=== PATIENT | male | born 1990 | race Caucasian/White ===

== ENCOUNTER 2016-09-11 22:26 | Observation (INO) | payer BC ==
[~2016-09-11] VITALS: Ht 170.2 cm; Wt 80.6 kg
[2016-09-11 23:22] VITALS: BP 140/93; PULSE 99; TEMP 98.3
[2016-09-11 23:50] LABS: BASO # 0.1 (0.0-0.2); BASO % 0.4 % (0.0-2.0); EOS # 0.3 (0.0-0.7); EOS % 2.2 % (0-4.0); GRAN # 7.9 (1.4-6.5); GRAN % 62.1 % (42.2-75.2); HEMATOCRIT 49.7 % (42.0-52.0); HEMOGLOBIN 17.3 g/dl (13.5-18.0); LYMPH # 3.2 (1.2-3.4); LYMPH % 25.6 % (20.0-51.0); MEAN CELL VOLUME 91 fl (80.0-100.0); MEAN CORPUSCULAR HEMOGLOBIN 32 pg (27.0-31.0); MEAN CORPUSCULAR HGB CONC 35 g/dl (33.0-37.0); MONO # 1.2 (0.1-0.6); MONO % 9.2 % (1.7-9.3); PLATELET COUNT 197 K/mm3 (130-400); RED BLOOD COUNT 5.45 M/mm3 (4.20-5.60); REDCELL DISTRIBUTION WIDTH-CV 12.1 % (11.5-14.5); WHITE BLOOD COUNT 12.7 K/mm3 (4.8-10.8)
[2016-09-12] VITALS (9 sets, daily range): BP systolic 107–140; BP diastolic 67–93; PULSE 82–107; TEMP 97.4–98.3
[2016-09-12 01:43] LABS: CALCIUM 9.9 mg/dL (8.4-10.2); CREATININE, serum 0.8 mg/dL (0.66-1.25)
[2016-09-12 06:37] LABS: BASO # 0.1 (0.0-0.2); BASO % 0.6 % (0.0-2.0); EOS # 0.3 (0.0-0.7); EOS % 2.1 % (0-4.0); GRAN # 10.6 (1.4-6.5); GRAN % 73.1 % (42.2-75.2); HEMATOCRIT 44.1 % (42.0-52.0); LYMPH # 2.2 (1.2-3.4); LYMPH % 15.3 % (20.0-51.0); MEAN CELL VOLUME 92 fl (80.0-100.0); MEAN CORPUSCULAR HEMOGLOBIN 32 pg (27.0-31.0); MEAN CORPUSCULAR HGB CONC 35 g/dl (33.0-37.0); MEAN PLATELET VOLUME 10.7 fl (7.4-10.4); MONO # 1.2 (0.1-0.6); MONO % 8.3 % (1.7-9.3); PLATELET COUNT 175 K/mm3 (130-400); RED BLOOD COUNT 4.78 M/mm3 (4.20-5.60); WHITE BLOOD COUNT 14.4 K/mm3 (4.8-10.8)
[2016-09-12 06:38] LABS: HEMOGLOBIN 15.2 g/dl (13.5-18.0)
== END 2016-09-12 09:22 | disposition home health service (06) ==
LOC: SURG 22:26
PROVIDERS: Surgery
DX: T18.5XXA Foreign body in anus and rectum, initial encounter (principal)
CPT/HCPCS: G0378; G0379; J2310; J2405; J2704; J3010; J7042; J7120

== ENCOUNTER 2017-11-02 17:43 | Inpatient (IN) | payer OTHER ==
[~2017-11-02] VITALS: Ht 165.1 cm; Wt 80.7 kg
[2017-11-02 18:16] VITALS: BP 167/101; PULSE 84; TEMP 98.8
[2017-11-02 20:12] LABS: INR 1.1 (0.8-3.0); PROTHROMBIN TIME 12.5 SECONDS (9.7-12.8)
[2017-11-02 20:15] LABS: PARTIAL THROMBOPLASTIN TIME 26.1 SECONDS (26.0-37.0)
[2017-11-02 20:16] VITALS: BP 169/102; PULSE 81; TEMP 97.5
[2017-11-02 23:41] VITALS: BP 169/103; PULSE 93; TEMP 99
[2017-11-03] VITALS (9 sets, daily range): BP systolic 150–159; BP diastolic 81–105; PULSE 79–93; TEMP 98.5–98.9
[2017-11-03 00:20] LABS: COLLECTION METHOD CLEAN CATCH
[2017-11-03 00:33] LABS: AMORPHOUS CRYSTAL Present /uL; PH 7 (5-8); SQUAMOUS EPITHELIAL None Seen /hpf; URINE APPEARANCE Cloudy; URINE BACTERIA None Seen /hpf; URINE BILIRUBIN Negative (NEGATIVE); URINE BLOOD Negative (NEGATIVE); URINE COLOR Yellow; URINE GLUCOSE Negative (NEGATIVE); URINE KETONE 1+ (NEGATIVE); URINE LEUKOCYTE ESTERASE Negative (NEGATIVE); URINE NITRATE Negative (NEGATIVE); URINE PROTEIN(semi-quant) 1+ (NEGATIVE); URINE RBC 0-2 /hpf; URINE UROBILINOGEN Negative (NEGATIVE); URINE WBC 0-2 /hpf
[2017-11-03 00:36] LABS: TRICYCLIC ANTIDEPRESS URINE NEGATIVE
[2017-11-03 07:53] LABS: BASO % 0.2 % (0.0-2.0); EOS # 0.1 (0.0-0.7); EOS % 0.3 % (0-4.0); GRAN # 13.4 (1.4-6.5); GRAN % 86.3 % (42.2-75.2); HEMOGLOBIN 15.6 g/dl (13.5-18.0); LYMPH % 6.4 % (20.0-51.0); MEAN CELL VOLUME 93 fl (80.0-100.0); MEAN CORPUSCULAR HEMOGLOBIN 33 pg (27.0-31.0); MEAN CORPUSCULAR HGB CONC 36 g/dl (33.0-37.0); MEAN PLATELET VOLUME 10.4 fl (7.4-10.4); MONO % 6.2 % (1.7-9.3); PLATELET COUNT 143 K/mm3 (130-400); RED BLOOD COUNT 4.72 M/mm3 (4.20-5.60); REDCELL DISTRIBUTION WIDTH-CV 11.5 % (11.5-14.5)
[2017-11-03 08:02] LABS: CHOLESTEROL RISK RATIO 4.8; CREATININE, serum 0.63 mg/dL (0.66-1.25); MAGNESIUM 2.2 mg/dL (1.6-2.3); POTASSIUM 3.2 mmol/L (3.4-5.0)
[2017-11-04] VITALS (12 sets, daily range): BP systolic 135–165; BP diastolic 82–104; PULSE 71–89; TEMP 97.8–99.4
[2017-11-04 06:22] LABS: BASO # 0.1 (0.0-0.2); BASO % 0.5 % (0.0-2.0); EOS # 0.3 (0.0-0.7); EOS % 2.3 % (0-4.0); GRAN # 10.2 (1.4-6.5); GRAN % 78.2 % (42.2-75.2); HEMATOCRIT 40.7 % (42.0-52.0); HEMOGLOBIN 14.4 g/dl (13.5-18.0); LYMPH # 1.4 (1.2-3.4); LYMPH % 10.5 % (20.0-51.0); MEAN CELL VOLUME 94 fl (80.0-100.0); MEAN CORPUSCULAR HEMOGLOBIN 33 pg (27.0-31.0); MEAN CORPUSCULAR HGB CONC 35 g/dl (33.0-37.0); MEAN PLATELET VOLUME 10.6 fl (7.4-10.4); MONO % 7.9 % (1.7-9.3); PLATELET COUNT 122 K/mm3 (130-400); RED BLOOD COUNT 4.35 M/mm3 (4.20-5.60); REDCELL DISTRIBUTION WIDTH-CV 11.2 % (11.5-14.5)
[2017-11-04 06:32] LABS: ALBUMIN 3.3 gm/dL (3.5-5.0); CALCIUM 7.8 mg/dL (8.4-10.2); CREATININE, serum 0.59 mg/dL (0.66-1.25); MAGNESIUM 2.2 mg/dL (1.6-2.3); POTASSIUM 3.5 mmol/L (3.4-5.0); TOTAL PROTEIN 5.9 gm/dL (6.4-8.2)
[2017-11-05 03:25] VITALS: BP 149/93; PULSE 66; TEMP 98.9
[2017-11-05 06:36] LABS: BASO # 0.1 (0.0-0.2); BASO % 0.6 % (0.0-2.0); EOS # 0.4 (0.0-0.7); EOS % 2.9 % (0-4.0); GRAN # 9.7 (1.4-6.5); GRAN % 76.1 % (42.2-75.2); HEMATOCRIT 41.2 % (42.0-52.0); HEMOGLOBIN 14.6 g/dl (13.5-18.0); LYMPH # 1.5 (1.2-3.4); LYMPH % 11.9 % (20.0-51.0); MEAN CELL VOLUME 93 fl (80.0-100.0); MEAN CORPUSCULAR HEMOGLOBIN 33 pg (27.0-31.0); MEAN CORPUSCULAR HGB CONC 35 g/dl (33.0-37.0); MEAN PLATELET VOLUME 10.5 fl (7.4-10.4); MONO % 7.7 % (1.7-9.3); PLATELET COUNT 158 K/mm3 (130-400); RED BLOOD COUNT 4.42 M/mm3 (4.20-5.60); REDCELL DISTRIBUTION WIDTH-CV 11.3 % (11.5-14.5)
[2017-11-05 06:53] LABS: ALBUMIN 3.5 gm/dL (3.5-5.0); BILIRUBIN,TOTAL 0.8 mg/dL (0.0-1.0); CALCIUM 8.4 mg/dL (8.4-10.2); CREATININE, serum 0.62 mg/dL (0.66-1.25); POTASSIUM 3.4 mmol/L (3.4-5.0); TOTAL PROTEIN 6.4 gm/dL (6.4-8.2)
[2017-11-05 07:48] VITALS: BP 168/100; PULSE 80; TEMP 98.9
[2017-11-05] MEDS ORDERED: MIRTAZAPINE7.5 MG PO (08:49)
[2017-11-05] MEDS ORDERED: DUO-KAPS1 CAP PO (08:49)
[2017-11-05] MEDS ORDERED: NICODERM C14 MG/PATC TD (08:49)
[2017-11-05] MEDS ORDERED: THIAMINE 1100 MG/TAB PO (08:50)
[2017-11-05] MEDS ORDERED: FOLIC ACID 11 MG/TA1 PO (08:50)
[2017-11-05] MEDS ORDERED: ZOLOFT 50MG50 MG PO (08:51)
[2017-11-05] MEDS ORDERED: ZOFRAN 4MG T4 MG/TAB PO (08:53)
[2017-11-05] MEDS ORDERED: ZESTRIL 10MG10 MG PO (09:04)
[2017-11-05] MEDS ORDERED: PROTONIX 40MG T40 MG PO (09:04)
== END 2017-11-05 10:21 | disposition home or self-care (01) | DRG 439 ==
LOC: MEDICAL 17:43
PROVIDERS: Nurse Practitioner; Nurse Practitioner Family; Physician Assistant
DX: K85.20 Alcohol induced acute pancreatitis without necrosis or infection (principal); K92.0 Hematemesis; F10.24 Alcohol dependence with alcohol-induced mood disorder; F90.9 Attention-deficit hyperactivity disorder, unspecified type; F41.8 Other specified anxiety disorders; F17.210 Nicotine dependence, cigarettes, uncomplicated; E87.6 Hypokalemia; I10 Essential (primary) hypertension; K76.0 Fatty (change of) liver, not elsewhere classified; K70.9 Alcoholic liver disease, unspecified
CPT/HCPCS: 99222-AI; 99231-AI; 99239; C9113; J1170; J2270; J2405; J3475; J7030